=== PATIENT | female | born 1985 | race Caucasian/White ===

== ENCOUNTER 2021-06-24 17:26 | Emergency (ER) | payer BC, SELFPAY ==
--- NOTE | ~2021-06-24 | XR_ITS ---
EXAMINATION: XR finger 1st RT min 2V INDICATION: Right first finger pain TECHNIQUE: Three views of the right first finger are obtained. COMPARISON: None available FINDINGS: There is no fracture, dislocation, or subluxation. The bones, soft tissues, and joint space s are normal. IMPRESSION: 1. No acute osseous abnormality. Reviewed, dictated and finalized at location A.
[2021-06-24 17:33] VITALS: BP 130/90; PULSE 73; RESP 16; TEMP 37; O2SAT 97
--- NOTE | 2021-06-24 17:42 | ED.UPPEXIN ---
HPI - Extremity Injury (Upper) General Chief Complaint: Extremity Injury, Upper Stated Complaint: right thumb pain Source: patient and RN notes reviewed Limitations: no limitations History of Present Illness HPI narrative: The right-handed patient, previously mostly healthy, presents with right thumb pain. Patient states she has a childhood history of gymnastic injury/fracture to the right thumb. Now she complains of 1 week of right ulnar collateral thumb pain that is mild, worse with motion, better at rest or with a splint that she got. Related Data Home Medications Medication Instructions Recorded Confirmed alprazolam 0.5 mg PO HS PRN 06/24/21 06/24/21 etonogestrel-ethinyl estradiol vag ring VAGINAL 06/24/21 06/24/21 [EluRyng] sertraline 100 mg PO DAILY 06/24/21 06/24/21 Allergies Allergy/AdvReac Type Severity Reaction Status Date / Time amoxicillin Allergy Intermediate rash Verified 06/24/21 17:37 Penicillins Allergy Mild Unknown Verified 06/24/21 17:37 Sulfa (Sulfonamide Allergy Mild Unknown Verified 06/24/21 17:37 Antibiotics) sulfamethoxazole Allergy Mild Unknown Verified 06/24/21 17:37 trimethoprim Allergy Mild Unknown Verified 06/24/21 17:37 Review of Systems Review of Systems: General/Constitutional: No weight loss,fever Eyes: N0: Redness,discharge Ears/Nose/Throat: No: Epistaxis,ear discharge Respiratory: Denies: Hemoptysis Gastrointestinal: No Vomiting, Bleeding-rectal Skin: No Lumps, eruption Neurologic: No Focal Weakness,Sz Hematologic: Denies: Petechiae/Purpura Psychiatric: No: Suicida ideationl All Other Systems: Reviewed and Negative [facility] Family History Family History Grandparent Depression Family history of cardiovascular disease, Onset Age: 80 Acute myocardial infarction, Onset Age: 50 Mother Family history of elevated blood lipids Father Family history of alcoholism, Onset Age: 61 Family history of cardiovascular disease, Onset Age: 61 Other Family history of malignant neoplasm of breast Social History Social History Smoking status: Never smoker Alcohol intake: current Comments At time of signature, agree with nursing past medical, surgical, social and family history. There is no relevant family history pertinent to the presenting complaint Exam Narrative: General Appearance: Well appearing, Conjunctiva clear Mouth/Throat: Normal appearing, Normal lips, Supple Respiratory: Airway patent, No respiratory distress MS-hand: Normal strength (mostly intact, limited flexion/extension by pain), Tenderness (the collateral ligament, with mild decreased ROM), Swelling (laterally), Other (no anterior drawer, + collateral laxity, Skin: Warm, Dry, Normal color Neurological: A&O x3, Speech clear, CN II-XII intact Psychiatric: Normal mood, Normal affect Course Course Emergency Course: Films visualized, interpreted by radiologist, agree, normal see report Vital Signs Vital signs: Vital Signs Temperature 98.6 F 06/24/21 17:33 Pulse Rate 73 06/24/21 17:33 Respiratory Rate 16 06/24/21 17:33 Blood Pressure 130/90 06/24/21 17:33 Pulse Oximetry 97 06/24/21 17:33 Temperature 98.6 F 06/24/21 17:33 Pulse Rate 73 06/24/21 17:33 Respiratory Rate 16 06/24/21 17:33 Blood Pressure 130/90 06/24/21 17:33 Pulse Oximetry 97 06/24/21 17:33 Discharge Plan Discharge Clinical Impression: Sprain of ulnar collateral ligament of metacarpophalangeal (MCP) joint of left thumb Qualifiers: Encounter type: initial encounter Qualified Code(s): S63.642A - Sprain of metacarpophalangeal joint of left thumb, initial encounter Patient Disposition: Home, Self-Care Condition: Stable Instructions: Skier's Thumb (ED) Additional Instructions: Continue wearing reinforced thumb splint, see hand doctor in follow-up [reference p
== END 2021-06-24 18:30 | disposition home or self-care (01) ==
PROVIDERS: Emergency Provider Emergency Medicine; PCP Family Medicine
DX: S63.642A Sprain of metacarpophalangeal joint of left thumb, initial encounter (principal); X58.XXXA Exposure to other specified factors, initial encounter; F41.9 Anxiety disorder, unspecified; F32.9 Major depressive disorder, single episode, unspecified
CPT/HCPCS: 73140; 99213; G0463

== ENCOUNTER 2021-08-15 08:06 | Emergency (ER) | payer BC, SELFPAY ==
--- NOTE | 2021-08-15 08:10 | ED.GENADULT ---
HPI - General Adult General Chief complaint: Skin/Abscess/Foreign Body Stated complaint: sunburn on lips Time Seen by Provider: 08/15/21 08:10 Source: patient Mode of arrival: ambulatory Limitations: no limitations History of Present Illness HPI narrative: 35-year-old female patient presents to the [facility] with complaints of a burn to her bottom lip for the past 3 days. Patient states she recently vacationed in [place] and did put on sunscreen but I guess did not put sunscreen on her lip. Patient states it did first blister it was swollen now the blisters have popped and she has some yellow looking pus to the bottom lip that she is concerned might be infected. No fevers, body aches or chills. Patient states that her bottom lip is still swollen. Patient states she has been taking ibuprofen and putting Aquaphor onto the lip. Related Data Home Medications Medication Instructions Recorded Confirmed alprazolam 0.5 mg PO HS PRN 06/24/21 06/24/21 sertraline 100 mg PO DAILY 06/24/21 06/24/21 etonogestrel-ethinyl estradiol 1 vag ring VAGINAL 08/15/21 [EluRyng] Allergies Allergy/AdvReac Type Severity Reaction Status Date / Time amoxicillin Allergy Intermediate rash Verified 08/15/21 08:19 Penicillins Allergy Mild Unknown Verified 08/15/21 08:19 Sulfa (Sulfonamide Allergy Mild Unknown Verified 08/15/21 08:19 Antibiotics) sulfamethoxazole Allergy Mild Unknown Verified 08/15/21 08:19 trimethoprim Allergy Mild Unknown Verified 08/15/21 08:19 Review of Systems Review of Systems: CONSTITUTIONAL: Denies fever, chills, or sweats. EYES: Denies visual changes, redness, or discharge. ENT: Denies rhinorrhea, congestion, sore throat, or otalgia. Positive swelling and blisters to lower lip CARDIOVASCULAR: Denies chest pain, palpitations, or edema. RESPIRATORY: Denies cough or dyspnea. GASTROINTESTINAL: Denies abdominal pain, nausea, vomiting, or diarrhea. GENITOURINARY: Denies dysuria or hematuria. SKIN: Denies rash or itching. MUSCULOSKELETAL: Denies back pain, joint pain, or myalgia. NEUROLOGIC: Denies headache, numbness, or weakness. PSYCHIATRIC: Denies anxiety or depression. [facility] Family History Family History Grandparent Depression Family history of cardiovascular disease, Onset Age: 80 Acute myocardial infarction, Onset Age: 50 Mother Family history of elevated blood lipids Father Family history of alcoholism, Onset Age: 61 Family history of cardiovascular disease, Onset Age: 61 Other Family history of malignant neoplasm of breast Social History Social History Smoking status: Never smoker Alcohol intake: current Comments At the time of my signature I agree with nursing past medical history, surgical, social, and family history. There is no relevant family history pertinent to the presenting complaint. Exam Narrative: GENERAL: Well-appearing, well-nourished, and in no acute distress. HEAD: Normocephalic, atraumatic. EYES: PERRLA and EOMI. ENT: Nares clear, no rhinorrhea or epistaxis. Mucous membranes moist. Patient does have swelling noted to the lower lip with yellow serosanguineous fluid noted. No blisters at this time. NECK: Supple. No lymphadenopathy CHEST: Clear to auscultation. No respiratory distress. HEART: Regular rate and rhythm. No murmur heard. Normal peripheral pulses. ABDOMEN: Soft, nontender, nondistended, normal active bowel sounds. EXTREMITIES: Normal range of motion. No edema. SKIN: Warm, dry, no rash. NEURO: No focal deficits. Alert and oriented x3. Course Vital Signs Vital signs: Vital Signs Temperature 37.1 C 08/15/21 08:13 Pulse Rate 81 08/15/21 08:13 Respiratory Rate 16 08/15/21 08:13 Blood Pressure 146/88 H 08/15/21 08:13 Pulse Oximetry 99 08/15/21 08:13 Temperature 37.1 C 08/15/21 08:13 Pulse Rate 81 08/15/21 08:13 R
[2021-08-15 08:13] VITALS: BP 146/88; PULSE 81; RESP 16; TEMP 37.1; O2SAT 99
== END 2021-08-15 08:25 | disposition home or self-care (01) ==
PROVIDERS: Emergency Provider Nurse Practitioner Family; PCP Family Medicine
DX: L55.1 Sunburn of second degree (principal)
CPT/HCPCS: 99212; G0463

== ENCOUNTER 2022-10-07 14:11 | Outpatient (CLI) | payer BC, SELFPAY ==
[2022-10-07 14:41] LABS: Kit Draw Collected
== END 2022-10-07 14:12 | disposition home or self-care (01) ==
LOC: ANHGOSHLAB 14:13
PROVIDERS: PCP Family Medicine; Visit Provider Family Medicine
DX: Z00.00 Encounter for general adult medical examination without abnormal findings (principal); E04.0 Nontoxic diffuse goiter
CPT/HCPCS: 36415